=== PATIENT | female | born 1970 | race Caucasian/White ===

== ENCOUNTER 2017-04-14 17:20 | Emergency (ER) | payer OTHER ==
[2017-04-14] MEDS ORDERED: OXYCODONE-ACETAMINOPHEN 5-325 MG TABLET PO ONE (17:42)
--- NOTE | 2017-04-14 17:44 | ER Document Report ---
ED Medical Screen (RME) - General Chief Complaint: Ankle Injury Stated Complaint: LEFT ANKLE PAIN, SWELLING Time Seen by Provider: 04/14/17 17:42 Mode of Arrival: Wheelchair Information source: Patient Notes: 47-year-old female presents with ankle injury just prior to arrival. Patient unable to bear weight I have greeted and performed a rapid initial assessment of this patient. A comprehensive ED assessment and evaluation of the patient, analysis of test results and completion of the medical decision making process will be conducted by additional ED providers. PHYSICAL EXAMINATION: GENERAL: Well-appearing, well-nourished and in moderate distress HEAD: Atraumatic, normocephalic. EYES: Pupils equal round extraocular movements intact, conjunctiva are normal. ENT: Nares patent NECK: Normal range of motion LUNGS: No respiratory distress Musculoskeletal: Unable to bear weight NEUROLOGICAL: Normal speech, normal gait. PSYCH: Normal mood, normal affect. SKIN: Abrasion ecchymosis of the left medial malleolus - Related Data Allergies/Adverse Reactions: No Known Allergies Allergy (Unverified 04/14/17 17:24) Physical Exam - Vital signs Vitals: Temp Pulse Resp BP Pulse Ox 98.0 F 87 24 H 130/76 H 100 04/14/17 17:36 04/14/17 17:36 04/14/17 17:36 04/14/17 17:36 04/14/17 17:36 Course - Vital Signs Vital signs: Temp Pulse Resp BP Pulse Ox 98.0 F 87 24 H 130/76 H 100 04/14/17 17:36 04/14/17 17:36 04/14/17 17:36 04/14/17 17:36 04/14/17 17:36
[2017-04-14] MEDS ORDERED: ONDANSETRON HCL INJ/PF 4 MG/2 ML SDV IV ONE (18:04)
[2017-04-14] MEDS ORDERED: HYDROMORPHONE HCL INJ/PF 2 MG/ML AMPULE IV ONE ×2 (18:04→18:42)
[2017-04-14] MEDS ORDERED: PROPOFOL INJ 200 MG/20 ML VIAL IV ONE (18:23)
--- NOTE | 2017-04-14 18:26 | RADIOLOGY REPORT (SQ) ---
EXAM DESCRIPTION: ANKLE LEFT AP/LATERAL COMPLETED DATE/TIME: 04/14/2017 6:06 pm REASON FOR STUDY: ankle injury COMPARISON: None. NUMBER OF VIEWS: Three views. TECHNIQUE: AP, lateral, and oblique radiographic images acquired of the left ankle. LIMITATIONS: None. FINDINGS: MINERALIZATION: Normal. BONES: Fracture of the distal fibula and distal tibia with disruption of the tibiotalar joint. JOINTS: No effusions. SOFT TISSUES: No soft tissue swelling. No foreign body. OTHER: No other significant finding. IMPRESSION: FRACTURE DISLOCATION OF THE TIBIOTALAR JOINT. FRACTURE OF THE DISTAL FIBULA. TECHNICAL DOCUMENTATION: JOB ID: [id number] [email or web address]- All Rights Reserved
--- NOTE | 2017-04-14 18:45 | ER Document Report ---
ED Extremity Problem, Lower - General Chief Complaint: Ankle Injury Stated Complaint: LEFT ANKLE PAIN, SWELLING Time Seen by Provider: 04/14/17 17:42 Mode of Arrival: Wheelchair Information source: Patient Notes: 47 years old female while in [place] accidentally twisted her left ankle, presents with pain swelling and deformity of the ankle. Presents with extreme pain. - Related Data Allergies/Adverse Reactions: No Known Allergies Allergy (Unverified 04/14/17 17:24) Past Medical History - General Information source: Patient - Social History Smoking Status: Never Smoker Chew tobacco use (# tins/day): No Frequency of alcohol use: Occasional Drug Abuse: None Family History: Reviewed & Not Pertinent Patient has suicidal ideation: No Patient has homicidal ideation: No Renal/ Medical History: Denies: Hx Peritoneal Dialysis Past Surgical History: Reports: Hx Tubal Ligation Review of Systems - Review of Systems Notes: REVIEW OF SYSTEMS: CONSTITUTIONAL : Denies fever, chills, or sweats. Denies recent illness. EENT: Denies eye, ear, throat, or mouth pain or symptoms. Denies nasal or sinus congestion or discharge. Denies throat, tongue, or mouth swelling or difficulty swallowing. CARDIOVASCULAR: Denies chest pain. Denies palpitations or racing or irregular heart beat. Denies ankle edema. RESPIRATORY: Denies cough, cold, or chest congestion. Denies shortness of breath, difficulty breathing, or wheezing. GASTROINTESTINAL: Denies abdominal pain or distention. Denies nausea, vomiting , or diarrhea. Denies blood in vomitus, stools, or per rectum. Denies black, tarry stools. Denies constipation. GENITOURINARY: Denies difficulty urinating, painful urination, burning, frequency, blood in urine, or discharge. FEMALE GENITOURINARY: Denies vaginal bleeding, heavy or abnormal periods, irregular periods. Denies vaginal discharge or odor. MUSCULOSKELETAL: As per history of complain SKIN: Denies rash, lesions or sores. HEMATOLOGIC : Denies easy bruising or bleeding. LYMPHATIC: Denies swollen, enlarged glands. NEUROLOGICAL: Denies confusion or altered mental status. Denies passing out or loss of consciousness. Denies dizziness or lightheadedness. Denies headache. Denies weakness or paralysis or loss of use of either side. Denies problems with gait or speech. Denies sensory loss, numbness, or tingling. Denies seizures. PSYCHIATRIC: Denies anxiety or stress. Denies depression, suicidal ideation, or homicidal ideation. ALL OTHER SYSTEMS REVIEWED AND NEGATIVE. PHYSICAL EXAMINATION: GENERAL: Well-appearing, well-nourished and in no acute distress. Obese HEAD: Atraumatic, normocephalic. EYES: Pupils equal round and reactive to light, extraocular movements intact, conjunctiva are normal. ENT: Nares patent, oropharynx clear without exudates. Moist mucous membranes. NECK: Normal range of motion, supple without lymphadenopathy LUNGS: Breath sounds clear to auscultation bilaterally and equal. No wheezes rales or rhonchi. HEART: Regular rate and rhythm without murmurs ABDOMEN: Soft, nontender, nondistended abdomen. No guarding, no rebound. No masses appreciated. Female : deferred Musculoskeletal: Examination of the left ankle shows deformity with displacement towards laterally and angulated swelling and extremely tender. Dorsalis pedis pulses are present. NEUROLOGICAL: Cranial nerves grossly intact. Normal speech, normal gait. Normal sensory, motor exams PSYCH: Normal mood, normal affect. SKIN: Warm, Dry, normal turgor, no rashes or lesions noted. Dictation was performed using [employer] voice recognition software Physical Exam - Vital signs Vitals: Temp Pulse Resp BP Pulse Ox 98.0 F 87 24 H 130/76 H 100 04/14/17 17:36 04/14/17 17:36 04/14/17 17:36 04/14/17 17:36 04/14/17 17:36 Course - Re-evaluation Re-evalutation: 04/14/17 19:50 Under conscious sedation the left ankle dislocation was reduced without any complications. Propofol was used. 04/14/17 20:20 Reevaluated, pain-free, which to go back to [place] to have the surgery, - Vital Signs Vital signs: Temp Pulse Resp BP Pulse Ox 98.0 F 87 19 102/83 100 04/14/17 17:36 04/14/17 17:36 04/14/17 20:26 04/14/17 20:26 04/14/17 20:26 Procedures - Conscious Sedation Conscious sedation Time started: 18:35 Time completed: 18:50 Consent obtained: Yes Indication: Fracture dislocation of the ankle Prior complications: Procedural sedation Emergent conditions applies.: E. - ASA Classification Normal healthy pt.: P1. - ASA Classification Airway Evaluation: Normal anatomy Mallampati Classification: Class 1 Used during procedure: Suction available, IV access obtained Medications administered: Diprivan Reversal agents: None I personally performed/intraservice time: Sedation, 46-60 min Complications: No - Joint Reduction/Fracture Care Left Ankle Time completed: 18:35 Consent obtained: Yes Conscious sedation: Yes Pre-procedure NV exam: Yes - Normal Fracture: Closed Manipulation comment: Left foot traction subsequent abduction dorsiflexion, straighten the ankle Post-procedure NV exam: Yes - Normal sensation and dorsalis pedis pulse Post-reduction x-ray: Joint reduced Reduction attempts: 1 Complications: No Notes: 04/14/17 19:53 Mortise still a little away from the navicular bone this is unavoidable because she has a fracture of the distal fibula, she is lacking the lateral force to keep the ankle within the joint completely. Discharge - Discharge Clinical Impression: Fracture dislocation of ankle Qualifiers: Encounter type: initial encounter Fracture type: closed Laterality: left Qualified Code(s): S82.892A - Other fracture of left lower leg, initial encounter for closed fracture Condition: Fair Disposition: HOME, SELF-CARE Instructions: Ankle Stirrup Splint ([facility]), Oral Narcotic Medication ([facility]), Soft Ankle Splint ([facility]) Additional Instructions: Keep the ankle elevated as much as possible, Prescriptions: Diclofenac Sodium 75 mg PO TID PRN #60 tablet. PRN Reason: Oxycodone HCl/Acetaminophen [Percocet 10-325 Mg Tablet] 1 each PO TID PRN #20 tablet PRN Reason:
--- NOTE | 2017-04-14 20:18 | RADIOLOGY REPORT (SQ) ---
EXAM DESCRIPTION: ANKLE LEFT AP/LATERAL COMPLETED DATE/TIME: 04/14/2017 8:04 pm REASON FOR STUDY: Postreduction x-ray COMPARISON: 04/14/2017 NUMBER OF VIEWS: Three views. TECHNIQUE: AP, lateral, and oblique radiographic images acquired of the left ankle. LIMITATIONS: None. FINDINGS: MINERALIZATION: Normal. BONES: In plaster. Persistent lateral subluxation of the talus and fibula with respect to the tibia. Distal 3rd shaft fibular fracture. JOINTS: No effusions. SOFT TISSUES: Soft tissue swelling. OTHER: No other significant finding. IMPRESSION: Partial reduction of the previously noted fracture dislocation. There is still lateral subluxation of the talus with respect to the tibia. TECHNICAL DOCUMENTATION: JOB ID: [id number] [employer]- All Rights Reserved
[2017-04-14] MEDS ORDERED: HYDROCODONE/ACETAMINOPHEN 5-325 MG 6 TAB/DSPK PO PRN (20:28)
[2017-04-14 20:33] VITALS: BP 102/83
== END 2017-04-14 22:40 | disposition home or self-care (01) ==
LOC: ER 17:20
PROC: 0SSGXZZ Reposition Left Ankle Joint, External Approach (ICD-10-PCS; principal; 2017-04-14)
PROC: 0QSKXZZ Reposition Left Fibula, External Approach (ICD-10-PCS; 2017-04-14)
DX: S82.892A Other fracture of left lower leg, initial encounter for closed fracture (principal); X50.0XXA Overexertion from strenuous movement or load, initial encounter; Z98.51 Tubal ligation status
CPT/HCPCS: 96376; 99284; 99152; 96374; 96375; 73600; 27788; J1170; J2405; J2704

== ENCOUNTER 2017-04-15 02:24 | Emergency (ER) | payer OTHER ==
[2017-04-15] MEDS ORDERED: PROMETHAZINE HCL 25 MG TABLET PO ONE (04:24)
[2017-04-15] MEDS ORDERED: HYDROMORPHONE HCL INJ/PF 2 MG/ML AMPULE IM ONE (04:24)
--- NOTE | 2017-04-15 04:27 | ER Document Report ---
HPI - HPI Patient complains to provider of: left ankle pain Pain Level: 4 Context: Patient is a 47-year-old female that comes emergency department for chief complaint of left ankle pain. She states that she had a left ankle dislocation fracture reduced earlier today, she states that the dispense pack home that she was taking tonight would only give her temporary relief of pain and she would like something additional for the pain. She denies reinjury, she denies any other complaints. She has an oxycodone/acetaminophen prescription for the morning which she will fill later. Past Medical History - General Information source: Patient - Social History Smoking Status: Never Smoker Frequency of alcohol use: None Drug Abuse: None Lives with: Family Family History: Reviewed & Not Pertinent Renal/ Medical History: Denies: Hx Peritoneal Dialysis Past Surgical History: Reports: Hx Tubal Ligation Vertical Provider Document - CONSTITUTIONAL General Appearance: WD/WN, Mild Distress - Patient mildly uncomfortable, shifting in her chair, Obese - INFECTION CONTROL TRAVEL OUTSIDE OF THE [place] IN LAST 30 DAYS: No - HEENT HEENT: Atraumatic - NECK Neck: Normal Inspection - RESPIRATORY Respiratory: Breath Sounds Normal, No Respiratory Distress O2 Sat by Pulse Oximetry: 97 - CARDIOVASCULAR Cardiovascular: Regular Rate, Regular Rhythm - GI/ABDOMEN Gastrointestinal: Abdomen Soft, Abdomen Non-Tender - MUSCULOSKELETAL/EXTREMETIES Musculoskeletal/Extremeties: Tender - Left lower extremity with a sugar tong and posterior ankle splint, normal capillary refill and sensation, normal coloration of the foot, able to bend the knee without any difficulty, unremarkable lower extremity exam otherwise - NEURO Level of Consciousness: Awake, Alert, Appropriate - DERM Integumentary: Warm, Dry, No Rash Course - Re-evaluation Re-evalutation: Loosened Dmitriy wrap, checked splint, no obvious abnormalities. Replace Dmitriy wrap slightly looser, good capillary refill, normal coloration to the foot. Patient uncomfortable but does not appear to be in severe distress. On close examination of the leg no evidence of compartment syndrome. Given IM dose of Dilaudid with Phenergan to help her be comfortable this evening. Patient is to follow-up with orthopedics back home by preference. Discussed return precautions, patient and family members at bedside state understanding and agreement. - Vital Signs Vital signs: Temp Pulse Resp BP Pulse Ox 98 F 90 18 109/72 97 04/15/17 02:33 04/15/17 02:33 04/15/17 02:33 04/15/17 02:33 04/15/17 02:33 Discharge - Discharge Clinical Impression: Fracture dislocation of ankle Qualifiers: Encounter type: initial encounter Fracture type: closed Laterality: left Qualified Code(s): S82.892A - Other fracture of left lower leg, initial encounter for closed fracture Left ankle pain Qualifiers: Chronicity: acute Qualified Code(s): M25.572 - Pain in left ankle and joints of left foot Condition: Stable Disposition: HOME, SELF-CARE Additional Instructions: Please follow-up with orthopedics at home as planned for additional management and likely surgery. Return to the emergency department for any concerning symptoms or if something is not right.
[2017-04-15 05:43] VITALS: BP 103/60
== END 2017-04-15 05:43 | disposition home or self-care (01) ==
LOC: ER 02:24
DX: S82.892D Other fracture of left lower leg, subsequent encounter for closed fracture with routine healing (principal); M25.572 Pain in left ankle and joints of left foot; X58.XXXD Exposure to other specified factors, subsequent encounter; Z98.890 Other specified postprocedural states
CPT/HCPCS: 99283; 96372; J1170